=== PATIENT | female | born 1995 | race Two or more races ===

== ENCOUNTER 2022-08-10 11:09 | Emergency (ER) | payer MEDICAID, OTHER ==
[~2022-08-10] VITALS: Ht 157.5 cm; Wt 95.0 kg
[2022-08-10 11:10] VITALS: BP 138/75
[2022-08-10 17:50] LABS: Urine Bacteria FEW /hpf (None Seen); Urine Blood Negative /uL (Negative); Urine Mucus FEW (None Seen); Urine Specific Gravity 1.024 (1.001-1.035); Urine WBC 1 /hpf (0 - 5)
[2022-08-10] MEDS ORDERED: AMOX875T3 PO (19:09)
[2022-08-10] MEDS ORDERED: DEXT15SY PO (19:09)
[2022-08-10] MEDS ORDERED: LORA-622 PO (19:09)
== END 2022-08-10 20:24 | disposition home or self-care (01) ==
LOC: ER 11:22
DX: O98.511 Other viral diseases complicating pregnancy, first trimester (principal); U07.1 COVID-19; Z3A.01 Less than 8 weeks gestation of pregnancy
CPT/HCPCS: 36415; 76801; 81001; 87426; 87804